=== PATIENT | male | born 1990 | race Caucasian/White ===

== ENCOUNTER 2018-03-23 22:26 | Emergency (ER) | payer OTHER, SELFPAY ==
[2018-03-23 22:27] VITALS: BP 148/70; PULSE 86; RESP 18; TEMP 36.9; O2SAT 96; BMI 35.9
--- NOTE | 2018-03-23 22:45 | CT_ITS ---
STUDY: CT BRAIN WITHOUT CONTRAST REASON FOR EXAM: Male, 27 years old. Fall, head injury, pain RADIATION DOSAGE (If Supplied By Facility): CTDIvol = ( 44.99 ) mGy, DLP = ( 796.11 ) mGycm TECHNIQUE: Transaxial CT imaging of the brain was performed without administration of intravenous contrast material. Individualized dose optimization techniques were used for this CT. COMPARISON: None. FINDINGS: The soft tissues are unremarkable. The osseous structures are unremarkable. Normal size ventricles and extra-axial spaces for the patient's age. The white matter tracts are unremarkable. The basal ganglia and thalami are unremarkable. No abnormalities are seen in the brainstem. The cerebellum is unremarkable. There is no intracranial hemorrhage. There are no findings of acute ischemia. The visualized sinuses are unremarkable. CT/Brain/Head without Contrast IMPRESSION: No acute intracranial abnormalities. Electronically Signed: Radha Fontana MD at 23:55 EDT Tel Direct: [phone], Service support ,
[2018-03-23 22:50] VITALS: RESP 17
[2018-03-23 23:00] LABS: Absolute Lymphocyte Count 2.54 X10^3/ul (0.83-4.51); Absolute Neutrophil Count 5.6 X10^3/uL (2.0-7.7); Basophil# 0.03 X10^3/uL; Basophil% 0.3 % (0-1); Eosinophil# 0.21 X10^3/uL; Eosinophils% 2.3 % (0-5); Hemoglobin 15.2 g/dl (13.0-16.5); Lymphocyte # 2.54 X10^3/ul (4.0); Lymphocyte % 27.7 % (19-41); Mean Corpuscular Hgb 29.4 pg (27.0-32.0); Mean Platelet Vol. 9.7 fl (6.2-12.0); Monocyte# 0.73 X10^3/uL; Neutrophil # 5.63 X10^3/uL (2.7-7.7); Neutrophil % 61.3 % (47-70); Platelet Count 250 K/mm3 (150-450); RBC Distribution Width CV 12.2 % (11.6-14.6); RBC Distribution Width SD 38.8 fl (35.1-43.9); Red Blood Count 5.17 M/mm3 (4.6-6.2); White Blood Count 9.2 K/mm3 (4.4-11.0)
[2018-03-23 23:01] LABS: POSITIVE COUNT NO; POSITIVE DIFFERENTIAL NO; POSITIVE MORPHOLOGY NO
[2018-03-23 23:12] LABS: Anion Gap 6 (5-15); BUN 10 mg/dL (7-18); BUN/Creat Ratio 11.9 RATIO (10-20); Calcium,Total 8.5 mg/dL (8.5-10.1); Chloride 105 mmol/L (98-107); Creatinine, Serum 0.84 mg/dL (0.70-1.30); EST Glomerular Filtration Rate 118 mL/min (>60); Est Glom Filt Rate - Afr Amer 143 mL/min (>60); Estimated Creatinine Clearance 138.81 ml/min; Glucose 112 mg/dL (74-106); Potassium 3.6 mmol/L (3.5-5.1); Sodium Level 139 mmol/L (136-145)
--- NOTE | 2018-03-23 23:21 | ED.VISSUMM ---
- ER Visit Summary Date of Service: 03/23/18 Chief Complaint: Suicidal ideation History of Present Illness: The patient is a 27 M presenting with suicidal ideation. Patient states that he has been having marital problems. Over the past couple of months he has had thoughts of suicide. He states he has had daily thoughts of hanging himself. He has been eating and sleeping more than usual. He did drink alcohol tonight. He denies drug use. He states while drinking he did fall and hit his head. He did not lose consciousness. No vomiting. No past history of suicide attempts. He believes he has a history of depression but is not on any medications. Physical Examination: Vitals are stable. Patient is afebrile. Alert no acute distress. HEENT exam is unremarkable. Neck is nontender Lungs are clear and equal bilaterally. Heart is regular rate and rhythm. Abdomen is soft nontender nondistended. Extremities are unremarkable. Skin is warm and dry. No focal neurologic deficit. Depressed affect, suicidal ideation Remainder of exam is unremarkable. Emergency Department Course and Treatment: CBC, chemistries unremarkable. Alcohol 87. Tox is pending. CT head shows no acute process. Discussed with the counseling center for evaluation. Disposition: Per counseling center Impression: Suicidal ideation This note was generated with [employer] dictation software. It may contain incorrect words, spelling, and punctuation that were not noted in review of the chart prior to signing ED Disposition - Plan for ED Patient: Chief Complaint: Suicidal Referrals: Leo Schultz III, MD [Primary Care Provider] -
[2018-03-23 23:27] VITALS: RESP 16
[2018-03-24 00:27] VITALS: RESP 16
--- NOTE | 2018-03-24 00:35 | ED.DEP ---
ED Disposition - Plan for ED Patient: Chief Complaint: Suicidal Instructions: ED Depression Referrals: Leo Schultz III, MD [Primary Care Provider] - Counseling,Center [GROUP OF PHYSICIANS] -
[2018-03-24 00:46] LABS: Amphetamine Urine VISTA NEGATIVE (<1000 ng/mL); Barbiturate Urine VISTA NEGATIVE (< 200 ng/mL); Benzodiazepine Urine VISTA NEGATIVE (< 200 ng/mL); Cocaine Urine VISTA NEGATIVE (< 300 ng/mL); Ecstacy Urine VISTA NEGATIVE (< 500 ng/mL); Methadone Urine VISTA NEGATIVE (< 300 ng/mL); PCP Urine VISTA NEGATIVE (< 25 ng/mL); THC Urine VISTA NEGATIVE (< 50 ng/mL); Vista UDS pH Range 6
[2018-03-24 00:54] VITALS: RESP 18
== END 2018-03-24 01:05 | disposition home or self-care (01) ==
PROVIDERS: Emergency Provider Emergency Medicine; Family Provider Family Medicine; PCP Family Medicine
DX: R45.851 Suicidal ideations (principal); Z72.0 Tobacco use
CPT/HCPCS: 70450; 80048; 80307; 80320; 85025; 99285; G0480